=== PATIENT | female | born 1990 | race Caucasian/White ===

== ENCOUNTER 2018-11-09 17:33 | Emergency (ER) | payer MEDICAID ==
[~2018-11-09] VITALS: Wt 65.2 kg
[2018-11-09 17:38] VITALS: BP 159/69; PULSE 78; RESP 18
[2018-11-09] MEDS ORDERED: HC30CR25 TOP (19:38)
[2018-11-09] MEDS ORDERED: CEPH-443 PO (19:38)
--- NOTE | 2018-11-09 21:34 | ERD ---
ER Documentation Chief Complaint Chief Complaint INSECT BITES TO RIGHT LEG HPI 28-year-old female patient with no significant past medical history presents to ED with insect bites to her right leg. Denies exposure to pets such as dogs or cats. She believes that they are mosquitoes, have the door open at night. It is itchy but she tries not to scratch it. Patient reports that it has gotten more swollen, red. Denies any fever, chills, calf pain, sensation loss of range of motion. Denies any new use of soaps, detergents. He is using any new creams or wearing any new close. Denies taking any medications or eating any new foods. ROS All systems reviewed and are negative except as per history of present illness. Medications Home Meds Active Scripts Cephalexin* (Keflex*) 500 Mg Capsule, 500 MG PO QID for 7 Days, CAP Prov:TIKI MCCULLOUGH PA-C 11/09/18 Hydrocortisone* Topical (Hydrocortisone* Topical) 2.5%-28.3 Gm Cream..g., 1 APPLIC TOP BID, #1 TUB Prov:TIKI MCCULLOUGH PA-C 11/09/18 Allergies Allergies: Coded Allergies: No Known Allergy (Unverified , 11/09/18) PMhx/Soc Medical and Surgical Hx: pt denies Medical Hx, pt denies Surgical Hx Hx Alcohol Use: No Hx Substance Use: No Hx Tobacco Use: No Smoking Status: Never smoker FmHx Family History: No diabetes, No coronary disease Physical Exam Vitals Vital Signs Date Temp Pulse Resp B/P (MAP) Pulse Ox O2 O2 Flow FiO2 Time Delivery Rate 11/09/18 98.5 78 18 159/69 99 17:38 (99) Physical Exam Const: [id number], well-nourished. In no acute distress. Head: Atraumatic, normocephalic Eyes: Normal Conjunctiva without injection ENT: Normal external ear, nose and mouth. Neck: Full range of motion. No meningismus. Resp: Clear to auscultation bilaterally. No wheezing, rhonchi, rales, or crackles. No accessory muscle use. No retractions. Cardio: Regular rate and rhythm, no murmurs Skin: No petechiae or rashes Back: No midline tenderness. No CVA tenderness. Ext: No cyanosis, or edema. Cap refill less than 2 seconds. Distal pulses intact bilaterally. Several punctate insect bites noted on the right anterior and posterior leg. 2 cm erythema surrounding the insect bite of the right inferior knee as well as 4 cm area of erythema surrounding the insect bite of the right posterior leg. No warm to touch. Neur: Awake and alert. Normal gait and coordination. Muscle strength 5/5. Sensation intact bilaterally. Psych: Normal Mood and Affect Procedures/MDM 28-year-old female patient with no significant past medical history presents to the ED complaining of right lower leg insect bites. Patient is afebrile and nontoxic-appearing. Patient's erythema has been marked with a skin pen. Patient will be given a prescription for hydrocortisone cream. If patient's symptoms do not improve, patient strictly instructed to continue flex for treatment of cellulitis. Low suspicion for MRSA. Low suspicion for anaphylaxis, scabies, SJS/TEN, TSS, Lyme's Disease, syphilis, RMSF, shingles, disseminated gonorrhea chlamydia, DIC, TTP, ITP, erythema multiforme, sepsis, cellulitis, necrotizing fasciitis, gangrene, meningococcemia, allergic contact dermatitis, urticaria, eczema, tinea infection, or other emergent conditions. Diagnosis: Insect Bites Discharge medications: Keflex, hydrocortisone Follow up with primary care physician in 1-2 days. Instructed patient to return to the ED sooner for any worsening symptoms. Patient's questions were answered. Patient is hemodynamically stable. Patient understood and agreed with discharge plan. Patient discharged stable. Disclaimer: Inadvertent spelling and grammatical errors are likely due to EHR/dictation software use and do not reflect on the overall quality of patient care. Also, please note that the electronic time recorded on this note does not necessarily reflect the actual time of the patient encounter. Departure Diagnosis: Primary Impression: Insect bites Encounter type: initial encounter Site of insect bite: lower leg Laterality: right Qualified Codes: S80.861A - Insect bite (nonvenomous), right lower leg, initial encounter; W57.XXXA - Bitten or stung by nonvenomous insect and other nonvenomous arthropods, initial encounter Condition: Stable Patient Instructions: Insect Sting/Bite, Infected Referrals: COMMUNITY CLINICS YOU HAVE RECEIVED A MEDICAL SCREENING EXAM AND THE RESULTS INDICATE THAT YOU DO NOT HAVE A CONDITION THAT REQUIRES URGENT TREATMENT IN THE EMERGENCY DEPARTMENT. FURTHER EVALUATION AND TREATMENT OF YOUR CONDITION CAN WAIT UNTIL YOU ARE SEEN IN YOUR DOCTORS OFFICE WITHIN THE NEXT 1-2 DAYS. IT IS YOUR RESPONSIBILITY TO MAKE AN APPOINTMENT FOR FOLOW-UP CARE. IF YOU HAVE A PRIMARY DOCTOR --you should call your primary doctor and schedule an appointment IF YOU DO NOT HAVE A PRIMARY DOCTOR YOU CAN CALL OUR PHYSICIAN REFERRAL HOTLINE AT IF YOU CAN NOT AFFORD TO SEE A PHYSICIAN YOU CAN CHOSE FROM THE FOLLOWING [facility] [address] [facility] [address] [place] [address] [facility] [address] [facility] [address] [facility]. [facility] [address] [facility]. [facility] YOU HAVE RECEIVED A MEDICAL SCREENING EXAM AND THE RESULTS INDICATE THAT YOU DO NOT HAVE A CONDITION THAT REQUIRES URGENT TREATMENT IN THE EMERGENCY DEPARTMENT. FURTHER EVALUATION AND TREATMENT OF YOUR CONDITION CAN WAIT UNTIL YOU ARE SEEN IN YOUR DOCTORS OFFICE WITHIN THE NEXT 1-2 DAYS. IT IS YOUR RESPONSIBILITY TO MAKE AN APPOINTMENT FOR FOLOW-UP CARE. IF YOU HAVE A PRIMARY DOCTOR --you should call your primary doctor and schedule and appointment IF YOU DO NOT HAVE A PRIMARY DOCTOR YOU CAN CALL OUR PHYSICIAN REFERRAL HOTLINE AT . IF YOU CAN NOT AFFORD TO SEE A PHYSICIAN YOU CAN CHOSE FROM THE FOLLOWING [facility] INSTITUTIONS: [facility] [address] [place] [address] [facility] [address] [place] [address] [facility] + [facility] [address] [place] [address] [facility] URGENT CARE/SPECIALTIES Additional Instructions: Call your primary care doctor TOMORROW for an appointment during the next 2-3 days.See the doctor sooner or return here if your condition worsens before your appointment time. TIKI MCCULLOUGH PA-C November 09, 2018 21:34
== END 2018-11-09 20:15 | disposition home or self-care (01) ==
LOC: FTE 17:33
DX: S80.861A Insect bite (nonvenomous), right lower leg, initial encounter (principal); W57.XXXA Bitten or stung by nonvenomous insect and other nonvenomous arthropods, initial encounter; Y92.9 Unspecified place or not applicable
CPT/HCPCS: 99283

== ENCOUNTER 2018-11-12 23:24 | Emergency (ER) | payer MEDICAID ==
[~2018-11-12] VITALS: Ht 160 cm; Wt 61.4 kg
[~2018-11-12 23:24] MED LIST: CEPH-443 PO; HC30CR25 TOP
[2018-11-12 23:40] VITALS: BP 117/57; PULSE 90; RESP 18; Ht 160 cm; Wt 61.4 kg
[2018-11-13] MEDS ORDERED: IBUP-1542 PO (03:03)
--- NOTE | 2018-11-13 03:22 | ERD ---
ER Documentation Chief Complaint Chief Complaint left foot pain, twisted left foot this am HPI 28-year-old female presents to the ED complaining of left ankle pain status post slip and fall on the rain earlier today. Patient states she twisted her ankle inward and has been having pain since then. She reports pain as throbbing. She states she initially had swelling but this improved with ice. She states her pain has been getting progressively worse. She denies any numbness or tingling focal weakness of her lower extremity. No head injury reported. No other inju isidro. ROS All systems reviewed and are negative except as per history of present illness. Medications Home Meds Active Scripts Ibuprofen* (Motrin*) 600 Mg Tab, 600 MG PO Q6H PRN for PAIN AND OR ELEVATED TEMP, #30 TAB Prov:CECILIA CARR PA-C 11/13/18 Cephalexin* (Keflex*) 500 Mg Capsule, 500 MG PO QID for 7 Days, CAP Prov:TIKI MCCULLOUGH PA-C 11/09/18 Hydrocortisone* Topical (Hydrocortisone* Topical) 2.5%-28.3 Gm Cream..g., 1 APPLIC TOP BID, #1 TUB Prov:TIKI MCCULLOUGH PA-C 11/09/18 Allergies Allergies: Coded Allergies: No Known Allergy (Unverified , 11/09/18) PMhx/Soc Hx Alcohol Use: No Hx Substance Use: No Hx Tobacco Use: No Physical Exam Vitals Vital Signs Date Temp Pulse Resp B/P (MAP) Pulse Ox O2 O2 Flow FiO2 Time Delivery Rate 11/12/18 98.3 90 18 117/57 99 23:40 (77) Physical Exam Const: No acute distress Head: Atraumatic Eyes: Normal Conjunctiva ENT: Normal External Ears, Nose and Mouth. Neck: Full range of motion. No meningismus. Resp: Clear to auscultation bilaterally Cardio: Regular rate and rhythm, no murmurs Abd: Soft, non tender, non distended. Normal bowel sounds Skin: No petechiae or rashes Back: No midline or flank tenderness Lower Extremity -left Skin: No laceration Compartments: Soft Motor: + Pain with range of motion of the left ankle. Full range of motion of the knee and foot. Sensation: Intact to light touch FDWS/MF/LF/P surfaces. Bones: + Moderate tennis palpation of the left lateral malleolus with soft tissue swelling. Nontender proximal tibia and foot. Joints: No effusion or laxity Pulses/Perfusion: 2+ DP, Capillary refill < 2 seconds Neur: Awake and alert Psych: Normal Mood and Affect Procedures/MDM LABS & DIAGNOSTIC IMAGING: PROCEDURE: Left ankle series CLINICAL INDICATION: Pain. Trauma. TECHNIQUE: AP, lateral and oblique images left ankle were obtained. COMPARISON: None FINDINGS: No evidence of acute fracture or dislocation. The bony mineralization is normal. No focal bony blastic or lytic lesions. No foreign bodies. IMPRESSION: No evidence acute fractures dislocations or foreign bodies. PROCEDURES: Moustapha wrap Assessment: Neurovascularly intact post splint placement with good fit. MEDICAL DECISION MAKIN-year-old female presents with left ankle pain status post inversion injury earlier today. Her x-ray is negative for any acute fracture or dislocation. I discussed with her that I cannot rule out occult fracture or ligamental tear. I recommended repeat imaging in 1 week if symptoms persistent. She was placed in Moustapha wrap and given crutches for comfort. Offered medications here but she ref used. Patient's extremity symptoms have stabilized while they have been evaluated in the department and are appropriate for outpatient follow up. No evidence of compartment syndrome, neurologic injury, vascular injury, open joint, open fracture, tendon laceration, or foreign body. Strict return precautions were discussed. PRESCRIPTIONS: Ibuprofen SPECIALIST FOLLOW UP RECOMMENDED: None Patient has been advised to follow up with primary care in 1-2 days. Departure Diagnosis: Primary Impression: Ankle sprain Encounter type: initial encounter Involved ligament of ankle: unspecified ligament Laterality: left Qualified Codes: S93.402A - Sprain of unspecified ligament of left ankle, initial encounter Condition: Stable Patient Instructions: Treating Ankle Sprains Additional Instructions: Call your primary care doctor TOMORROW for an appointment during the next 2-4 days and bring all the information and medications prescribed. If the symptoms get worse and your provider is unavailable, return to the Emergency Department immediately. CECILIA CARR PA-C November 13, 2018 03:22
== END 2018-11-13 04:08 | disposition home or self-care (01) ==
LOC: FTE 23:24
DX: S93.402A Sprain of unspecified ligament of left ankle, initial encounter (principal); X50.1XXA Overexertion from prolonged static or awkward postures, initial encounter; Y92.9 Unspecified place or not applicable
CPT/HCPCS: 73610; Z7502